=== PATIENT | male | born 1955 | race Caucasian/White ===

== ENCOUNTER 2021-08-12 21:49 | Emergency (ER) | payer MEDICARE, OTHER, SELFPAY ==
[2021-08-12 21:49] VITALS: BP 183/113; PULSE 71; RESP 18; TEMP 36.7; O2SAT 98; BMI 30.4
--- NOTE | 2021-08-12 22:02 | ECG_ITS ---
APPROVED REPORT Exam: Resting ECG HR:77 bpm ECG Measurements Heart Rate 77 AXES [place] 212 P 50 QRSd 93 QRS 31 QT 398 T 93 QTc 430 Conclusion SINUS RHYTHM WITH FIRST DEGREE AV BLOCK MINIMAL VOLTAGE CRITERIA FOR LVH, CONSIDER NORMAL VARIANT [MEETS CRITERIA IN ONE OF: R(aVL), S(V1), R(V5), R(V5/V6)+S(V1)] NONSPECIFIC T-WAVE ABNORMALITY ABNORMAL ECG UNCONFIRMED REPORT Electronically signed by : Yemi Santos MD 08/13/2021 19:45:32
--- NOTE | 2021-08-12 22:31 | XR_ITS ---
PROCEDURE INFORMATION: Exam: XR Chest Exam date and time: 08/12/2021 11:07 PM Age: 66 years old Clinical indication: Cough TECHNIQUE: Imaging protocol: XR of the chest. Views: 2 views. Total images: 3 COMPARISON: No relevant prior studies available. FINDINGS: Lungs: Nonspecific opacity in the right lung base, favoring atelectasis or pneumonia. Pleural spaces: Unremarkable. No pleural effusion. No pneumothorax. Heart/Mediastinum: Mild cardiomegaly. Bones/joints: Unremarkable. IMPRESSION: Nonspecific opacity in the right lung base, favoring atelectasis or pneumonia.
[2021-08-12 23:00] VITALS: BP 200/121; PULSE 79; O2SAT 95
--- NOTE | 2021-08-12 23:04 | [facility].EDMCLR ---
ED Disposition Clinical Impression: Formication, Abnormal drug screen, Obesity (BMI 30.0-34.9) HTN (hypertension) Qualifiers: Hypertension type: unspecified Qualified Code(s): I10 - Essential (primary) hypertension Ventral hernia Qualifiers: Obstruction and gangrene presence: without obstruction or gangrene Qualified Code(s): K43.9 - Ventral hernia without obstruction or gangrene Disposition: Home, Self-Care Condition on Discharge: Fair Instructions: DI for Substance Use Disorder Additional Instructions: see pcp for follow up Prescriptions: lisinopriL [Lisinopril] 5 mg PO DAILY #21 tab Transmission Status: Pending to [id number] Referrals: Provider,Referral, [Primary Care Provider] - - Critical Care Critical Care Time: No Attestation: On 08/12/21, the high probability of a clinically significant, sudden or life threatening deterioration of the following system(s) required my full and direct attention, intervention and personal management. The time I documented below is in addition to time spent performing reported procedures but includes the following listed in this critical care notation. Medical Decision Making - Medical Records Medical records reviewed: Yes: I reviewed the patient's medical records. - Marc Inquiry Pt receiving controlled substance: No Vital Signs: 08/12/21 21:49 08/12/21 23:00 08/13/21 00:00 Temperature 98.1 F Temperature Source Oral Pulse Rate 79 78 Pulse Rate [Left Radial] 71 Respiratory Rate 18 Blood Pressure 200/121 H 204/113 H Blood Pressure [Right Arm] 183/113 H Blood Pressure Mean 143 Blood Pressure Mean [Right Arm] 136 Blood Pressure Source Blood Pressure Position [Right Arm] Sitting 02 Sat by Pulse Oximetry 98 95 95 Oxygen Delivery Method Room Air Room Air Room Air 08/13/21 01:00 Temperature Temperature Source Pulse Rate Pulse Rate [Left Radial] Respiratory Rate Blood Pressure 220/118 H Blood Pressure [Right Arm] Blood Pressure Mean 137 Blood Pressure Mean [Right Arm] Blood Pressure Source Manual Cuff/ Auscultation Blood Pressure Position [Right Arm] 02 Sat by Pulse Oximetry 94 L Oxygen Delivery Method Room Air - Lab Data Lab results reviewed: Yes: I reviewed the patient's lab results. Lab Results 08/12/21 00:02: Urine Color Yellow, Urine Appearance Clear, Urine pH 6.5, Ur Specific Victor >= 1.030, Urine Protein 2+, Urine Glucose (UA) Negative, Urine Ketones Negative, Urine Blood Negative, Urine Nitrate Negative, Urine Bilirubin Negative, Urine Urobilinogen 0.2, Ur Leukocyte Esterase Negative, Urine WBC 3-5 08/12/21 00:02: Urine Opiates Screen Negative, Urine Methadone Screen Negative, Ur Barbituates Screen Negative, Ur Phencyclidine Scrn Negative, Ur Amphetamines Screen Positive H, U Benzodiazepines Scrn Negative, Urine Cocaine Screen Negative, U Marijuana (THC) Screen Negative 08/12/21 22:43: WBC 4.8, RBC 4.94, Hgb 14.0 L, Hct 42.1, MCV 85.2, MCH 28.4, MCHC 33.3, RDW 14.9, Plt Count 235, MPV 7.7, Neut % (Auto) 57.2, Lymph % (Auto) 29.3, Lea % (Auto) 9.4 H, Eos % (Auto) 3.5, Baso % (Auto) 0.6, Neut # (Auto) 2.7, Lymph # (Auto) 1.4, Lea # (Auto) 0.5, Eos # (Auto) 0.2, Baso # (Auto) 0.0 08/12/21 22:43: Sodium 138, Potassium 4.1, Chloride 105, Carbon Dioxide 27, Anion Gap 10.1, BUN 27 H, Creatinine 1.40 H, Estimated Creat Clear 82, Estimated GFR 51 L, Est GFR ( Amer) 61, Glucose 96, Calcium 9.0, Total Bilirubin 0.7, AST 40, ALT 25, Alkaline Phosphatase 50, Total Protein 7.3, Albumin 4.0, Globulin 3.3 H, Albumin/Globulin Ratio 1.2, Salicylates < 1.0 L, Acetaminophen < 10 L 08/12/21 22:43: Plasma/Serum Alcohol < 10 08/12/21 23:12: SARS-CoV-2 (PCR) Not detected, Influenza A Untype (PCR) Not detected, Influenza Type B (PCR) Not detected Result diagrams: 08/12/21 22:43 08/12/21 22:43 Orders (Tests/Meds): ED MEDICATIONS Discontinued Medications Generic Name Dose Route Start Last Admin Trade Name
[2021-08-12 23:22] LABS: Basophils % 0.6 % (0.1-2.0); Eosinophils # 0.2 K/mm3 (0.0-0.4); Eosinophils % 3.5 % (0.1-12.0); Hematocrit 42.1 % (42.0-52.0); Lymphocytes # 1.4 K/mm3 (0.7-4.5); Lymphocytes % 29.3 % (10-50); Mean Corpuscular HGB Conc 33.3 g/dL (31.8-35.4); Mean Corpuscular Hemoglobin 28.4 pg (27.0-31.2); Mean Corpuscular Volume 85.2 fl (80-94); Mean Platelet Volume 7.7 fl (7.4-10.4); Monocytes # 0.5 K/mm3 (0.1-1.0); Monocytes % 9.4 % (1.7-9.3); Neutrophils # 2.7 K/mm3 (1.8-7.8); Neutrophils % 57.2 % (37.0-80.0); Platelet Count 235 K/mm3 (142-424); Red Blood Count 4.94 M/mm3 (4.60-6.20); Red Cell Distribution Width 14.9 % (11.5-17.5); White Blood Count 4.8 K/mm3 (4.8-10.8)
[2021-08-12 23:35] LABS: Alanine Aminotransferase 25 U/L (12-78); Albumin/Globulin Ratio 1.2 (1.1-1.8); Alkaline Phosphatase 50 U/L (38-126); Anion Gap 10.1 mEq/L (5-15); Aspartate Amino Transferase 40 U/L (17-59); Bilirubin,Total 0.7 mg/dl (0.2-1.3); Blood Urea Nitrogen 27 mg/dl (9-20); Carbon Dioxide 27 mmol/L (22.0-30.0); Chloride 105 mmol/L (98-107); Creatinine Clearance Estimated 82 mL/min (50-200); Estimated Glomerular Filt Rate 51 ml/min (>60); Ethyl Alcohol < 10 mg/dl (0-10); GFR (African American) 61 ML/MIN (>60); Globulin 3.3 g/dL (1.3-3.2); Glucose 96 mg/dl (74-100); Potassium 4.1 mmoL/L (3.5-5.1); Sodium 138 mmol/L (136-145); Total Protein,Serum 7.3 g/dl (6.3-8.2)
[2021-08-12 23:37] LABS: Acetaminophen < 10 ug/ml (10-30)
[2021-08-12 23:41] LABS: Coronavirus 19, PCR Not Detected (NotDetected); Influenza A, PCR Not Detected (NotDetected); Influenza B, PCR Not Detected (NotDetected)
[2021-08-12 23:42] LABS: Salicylate < 1.0 mg/dL (2.0-20.0)
[2021-08-13] VITALS: BP 204/113; PULSE 78; O2SAT 95
[2021-08-13 00:08] LABS: Microscopic, Urine URINE MICROSCOPIC (MICROSCOPIC)
[2021-08-13 00:17] LABS: Appearance,Urine CLEAR (Clear); Bilirubin,Urine Negative (Negative); Blood, Urine Negative (Negative); Color,Urine YELLOW (Yellow); Glucose,Urine (UA) Negative (Negative); Ketones,Urine Negative (Negative); Leukocyte Esterase,Urine Negative (Negative); Nitrate,Urine Negative (Negative); PH,Urine 6.5 (5.0-8.5); Protein,Urine 2+ (Negative); Specific Gravity, Urine >= 1.030 (1.005-1.030); Urobilinogen,Urine 0.2 EU/dl (0.2)
[2021-08-13 00:43] LABS: Barbiturates Screen,Urine Negative ng/ml (<200); Benzodiazepines Screen,Urine Negative ng/ml (<200)
[2021-08-13 00:44] LABS: Cannabinoid Screen,Urine Negative ng/ml (<50)
[2021-08-13 00:45] LABS: Methadone Screen,Urine Negative ng/ml (<300); Opiate Screen,Urine Negative ng/ml (<300)
[2021-08-13 00:46] LABS: Cocaine Screen,Urine Negative ng/ml (<300)
[2021-08-13 00:47] LABS: Phencyclidine Screen,Urine Negative ng/ml (<25)
[2021-08-13 00:54] LABS: Amphetamine/Metha Screen,Urine Positive ng/ml (<1000)
[2021-08-13 01:00] VITALS: BP 220/118; O2SAT 94
--- NOTE | 2021-08-13 02:01 | PC.NURSE ---
Abdominal binder removed and hernia is easily reducible.
[2021-08-13 02:16] VITALS: BP 199/118; PULSE 81; RESP 20; TEMP 36.6; O2SAT 96
[2021-08-13 02:29] LABS: T4 (Thyroxine) 8.4 ug/dl (5.53-11.0)
[2021-08-13 02:43] LABS: Thyroid Stimulating Hormone 1.78 uIU/mL (0.465-4.68)
== END 2021-08-13 02:19 | disposition home or self-care (01) ==
PROVIDERS: Emergency Provider Emergency Medicine
DX: R20.2 Paresthesia of skin (principal); K43.9 Ventral hernia without obstruction or gangrene; R89.2 Abnormal level of other drugs, medicaments and biological substances in specimens from other organs, systems and tissues; I10 Essential (primary) hypertension; E66.9 Obesity, unspecified; Z79.899 Other long term (current) drug therapy
CPT/HCPCS: 71046; 80053; 80305; 80329; 81001; 84436; 84443; 85025; 93005; 99283; C9803; U0003; U0005